=== PATIENT | female | born 1985 ===

== ENCOUNTER 2019-06-13 17:08 | Emergency (ER) | payer OTHER ==
[~2019-06-13] VITALS: Ht 154.9 cm; Wt 52.6 kg
[2019-06-13] MEDS ORDERED: SYNTHROID88 MCG (17:24)
== END 2019-06-13 22:52 | disposition home or self-care (01) ==
LOC: ER 17:08
DX: K29.70 Gastritis, unspecified, without bleeding (principal); R19.7 Diarrhea, unspecified